=== PATIENT | male | born 1940 | race Caucasian/White ===

== ENCOUNTER 2017-11-21 09:34 | Outpatient (CLI) | payer MEDICARE, OTHER | END 2017-11-21 09:35 | disposition home or self-care (01) | LOC: LAB.F 09:34 | PROVIDERS: ATTEND Family Medicine | DX: E74.39 Other disorders of intestinal carbohydrate absorption (principal); I25.10 Atherosclerotic heart disease of native coronary artery without angina pectoris | CPT/HCPCS: 36415; 83036 ==

== ENCOUNTER 2017-12-10 09:53 | Emergency (ER) | payer MEDICARE, OTHER ==
[2017-12-10] MEDS ORDERED: NITROGLYCERIN SL 0.4 MG TABLET SL STA (10:07)
--- NOTE | 2017-12-10 10:10 | ED Physician Documentation ---
History of Present Illness - Stated complaint Stated Complaint: CHEST PX - Chief complaint Chief Complaint: Cardiac - Additonal information Additional information: hx from pt 77 male hx CAD s/p RI with cardiac arrest most recently had negative stress test in September but cath in October showed a 90% blocked coronary and he had a stent placed 2 weeks ago by [facility] cardio on plavix asa BB statin yesterday went for a bike ride afterwards was completely utterly unusually exhausted that evening developed severe CP that felt like his prior heart attack it subsided after a minute and he fell asleep and did not tell his when he awoke this AM he still has chest pain though less severe ant, pressure like, 2/10, no radiation no soa diaphoresis (though has had night sweats at times) NV no leg swelling called [facility] cardio and told to come to ER took asa and plavix within 24 hr Review of Systems Constitutional: reports: Fatigue. denies: Fever, Chills Throat: denies: Sore throat Cardiac: reports: Chest pain / pressure Respiratory: denies: Dyspnea, Cough GI: denies: Abdominal Pain, Nausea, Vomiting Musculoskeletal: denies: Extremity pain, Extremity swelling Neurologic: reports: Generalized weakness Endocrine: denies: Easy bruising / bleeding Immunocompromised: denies: Immunocompromised PD PAST MEDICAL HISTORY - Present Medications Home Medications: Ambulatory Orders Medication Instructions Recorded Confirmed Allopurinol 100 mg PO 12/10/17 Aspirin 12/10/17 Atorvastatin [Lipitor] 12/10/17 Clopidogrel [Plavix] 12/10/17 Glucosamine HCl 12/10/17 Metoprolol Tartrate 12/10/17 Omeprazole [PriLOSEC] 12/10/17 12/10/17 - Allergies Allergies/Adverse Reactions: Allergies Allergy/AdvReac Type Severity Reaction Status Date / Time No Known Drug Allergies Allergy Verified 12/10/17 10:02 PD ED PE NORMAL - Vitals Vital signs reviewed: Yes - General General: Alert and oriented X 3 - HEENT HEENT: Atraumatic - Neck Neck: Supple, no meningeal sign - Cardiac Cardiac: RRR, No murmur - Respiratory Respiratory: No respiratory distress, Clear bilaterally - Abdomen Abdomen: Soft, Non tender - Derm Derm: Normal color - Extremities Extremities: No edema, No calf tenderness / cord - Neuro Neuro: Alert and oriented X 3 Results - Vitals Vitals: Vital Signs - 24 hr 12/10/17 12/10/17 12/10/17 09:58 10:26 11:43 Temperature 36.4 C L Heart Rate 58 L 58 L 53 L Respiratory 18 16 16 Rate Blood Pressure 142/95 H 128/81 H 108/75 O2 Saturation 2 L 97 96 12/10/17 12/10/17 13:30 15:23 Temperature 36.8 C Heart Rate 59 L 57 L Respiratory 18 20 Rate Blood Pressure 115/80 108/72 O2 Saturation 97 Oxygen O2 Source Room air - EKG (time done) 0959 Rate: Rate (enter#) (59) Rhythm: NSR [place]: Normal Intervals: Normal HI Ischemia: Normal ST segments - Labs Labs: Laboratory Tests 12/10/17 12/10/17 12/10/17 10:05 10:05 10:05 WBC 6.2 RBC 4.51 L Hgb 13.8 L Hct 40.0 L MCV 88.6 MCH 30.5 MCHC 34.4 RDW 14.5 Plt Count 142 MPV 8.5 Neut # (Auto) 3.7 Lymph # (Auto) 1.6 [place] # (Auto) 0.5 Eos # (Auto) 0.3 Baso # (Auto) 0.0 Absolute Nucleated RBC 0.00 Nucleated RBC % 0.0 Sodium 136 Potassium 3.9 Chloride 108 Carbon Dioxide 21 Anion Gap 7.0 BUN 19 Creatinine 1.5 H Estimated GFR (MDRD) 45 L Glucose 135 H Calcium 9.0 Total Bilirubin 0.9 AST 25 ALT 26 Alkaline Phosphatase 88 Troponin I < 0.04 Total Protein 6.9 Albumin 3.8 Globulin 3.1 Albumin/Globulin Ratio 1.2 Lipase 54 H - Rads (name of study) CXR Radiology: See rad report (NACPD) PD MEDICAL DECISION MAKING - ED course ED course: pt refused nitro pain 2/10 EKG s acute ischemia trop neg but sx could be c/w angina worry about stent occlusion will call [facility] cardio to discuss transfer for further work up pt is now 0/10 severity and I feel he is stable for transport long delay in transport - first waiting for bed confirmation then for available EMS rig - pt was upset and angry and nurse natural sciences manager spoke to him - Sepsis Event Vital Signs: Vital Signs - 24 hr 12/10/17 12/10/17 12/10/17 09:58 10:26 11:43 Temperature 36.4 C L Heart Rate 58 L 58 L 53 L Respiratory 18 16 16 Rate Blood Pressure 142/95 H 128/81 H 108/75 O2 Saturation 2 L 97 96 12/10/17 12/10/17 13:30 15:23 Temperature 36.8 C Heart Rate 59 L 57 L Respiratory 18 20 Rate Blood Pressure 115/80 108/72 O2 Saturation 97 Oxygen O2 Source Room air Departure - Departure Disposition: 02 Transfer Acute Care Hosp Clinical Impression: Chest pain Qualifiers: Chest pain type: unspecified Qualified Code(s): R07.9 - Chest pain, unspecified Condition: Fair Discharge Date/Time: 12/10/17 16:09
[2017-12-10 10:17] LABS: BASOPHILS % (AUTO) 0.7 %; EOSINOPHILS # (AUTO) 0.3 10^3/uL (0.0-0.7); EOSINOPHILS % (AUTO) 5.3 %; HGB - HEMOGLOBIN 13.8 g/dL (14.0-18.0); LYMPHOCYTES # (AUTO) 1.6 10^3/uL (1.5-3.5); LYMPHOCYTES % (AUTO) 26.7 %; MEAN CORPUSCULAR HEMOGLOBIN 30.5 pg (27.0-31.0); MEAN CORPUSCULAR HGB CONC 34.4 g/dL (32.0-36.0); MEAN CORPUSCULAR VOLUME 88.6 fL (80.0-94.0); MEAN PLATELET VOLUME 8.5 fL (7.4-11.4); MONOCYTES # (AUTO) 0.5 10^3/uL (0.0-1.0); NEUTROPHILS # (AUTO) 3.7 10^3/uL (1.5-6.6); NEUTROPHILS % (AUTO) 59.3 %; PLT - PLATELET COUNT 142 10^3/uL (130-450); RED BLOOD COUNT 4.51 10^6/uL (4.70-6.10); RED CELL DISTRIBUTION WIDTH 14.5 % (12.0-15.0); WHITE BLOOD COUNT 6.2 x10^3/uL (4.8-10.8)
[2017-12-10 10:27] LABS: ALBUMIN 3.8 g/dL (3.2-5.5); ALBUMIN/GLOBULIN RATIO 1.2 (1.0-2.2); BILIRUBIN,TOTAL 0.9 mg/dL (0.2-1.0); CREATININE 1.5 mg/dL (0.6-1.2); TOTAL PROTEIN 6.9 g/dL (6.7-8.2)
--- NOTE | 2017-12-10 10:32 | XRAY Report ---
Procedure Date: 12/10/2017 Accession Number: [id number] / [id number] Procedure: XR - Chest 1 View X-Ray CPT Code: 44083 FULL RESULT: EXAM: CHEST RADIOGRAPHY EXAM DATE: 12/10/2017 10:17 AM. CLINICAL HISTORY: Cp. COMPARISON: None. TECHNIQUE: 1 view. FINDINGS: Lungs/Pleura: No focal opacities evident. No pleural effusion. No pneumothorax. Mediastinum: Within exam limitations, the cardiomediastinal contour is normal. Other: None. IMPRESSION: No focal consolidation. RADIA
[2017-12-10 15:25] VITALS: BP 108/72
== END 2017-12-10 16:09 | disposition short-term general hospital (02) ==
LOC: ED 09:53
DX: R07.9 Chest pain, unspecified (principal); I25.10 Atherosclerotic heart disease of native coronary artery without angina pectoris; I25.2 Old myocardial infarction; Z86.74 Personal history of sudden cardiac arrest; Z79.82 Long term (current) use of aspirin
CPT/HCPCS: 36415; 71045; 80053; 83690; 84484; 85025; 93005; 99284; A9270

== ENCOUNTER 2017-12-10 16:05 | Outpatient (CLI) | payer MEDICARE, OTHER | END 2017-12-10 16:06 | disposition short-term general hospital (02) | LOC: EMS 16:05 | PROVIDERS: ATTEND Surgery | DX: R07.9 Chest pain, unspecified (principal) | CPT/HCPCS: A0170; A0425; A0426 ==

== ENCOUNTER 2017-12-15 13:19 | Outpatient (CLI) | payer MEDICARE, OTHER ==
[2017-12-15 18:04] LABS: HB2 TOTAL 14.5 g/dL; HEMOGLOBIN A1C 0.59 g/dL; HEMOGLOBIN A1C % 5.9 % (4.6-6.2)
== END 2017-12-15 13:20 | disposition home or self-care (01) ==
LOC: LAB.F 13:19
PROVIDERS: ATTEND Internal Medicine
DX: R73.01 Impaired fasting glucose (principal)
CPT/HCPCS: 36415; 83036

== ENCOUNTER 2018-11-25 09:33 | Outpatient (CLI) | payer MEDICARE, OTHER ==
[2018-11-25 17:52] LABS: BASOPHILS % (AUTO) 0.4 %; EOSINOPHILS # (AUTO) 0.2 10^3/uL (0.0-0.7); EOSINOPHILS % (AUTO) 2.6 %; HGB - HEMOGLOBIN 15.7 g/dL (14.0-18.0); LYMPHOCYTES # (AUTO) 1.7 10^3/uL (1.5-3.5); LYMPHOCYTES % (AUTO) 18.2 %; MEAN CORPUSCULAR HEMOGLOBIN 30.9 pg (27.0-31.0); MEAN CORPUSCULAR HGB CONC 32.5 g/dL (32.0-36.0); MEAN CORPUSCULAR VOLUME 95.1 fL (80.0-94.0); MEAN PLATELET VOLUME 11.1 fL (7.4-11.4); MONOCYTES # (AUTO) 1.1 10^3/uL (0.0-1.0); MONOCYTES % (AUTO) 12.1 %; NEUTROPHILS # (AUTO) 6.1 10^3/uL (1.5-6.6); NEUTROPHILS % (AUTO) 66.3 %; PLT - PLATELET COUNT 133 10^3/uL (130-450); RED BLOOD COUNT 5.08 10^6/uL (4.70-6.10); RED CELL DISTRIBUTION WIDTH 13.7 % (12.0-15.0); WHITE BLOOD COUNT 9.2 x10^3/uL (4.8-10.8)
[2018-11-25 18:08] LABS: HB2 TOTAL 16.7 g/dL; HEMOGLOBIN A1C 0.71 g/dL
[2018-11-25 18:27] LABS: CALCIUM 9.6 mg/dL (8.5-10.3); CREATININE 1.4 mg/dL (0.6-1.2)
== END 2018-11-25 09:34 | disposition home or self-care (01) ==
LOC: LAB.S 09:33
PROVIDERS: ATTEND Internal Medicine
DX: R73.01 Impaired fasting glucose (principal); D50.9 Iron deficiency anemia, unspecified
CPT/HCPCS: 36415; 80048; 82728; 83036; 85025

== ENCOUNTER 2020-03-07 10:51 | Outpatient (CLI) | payer MEDICARE, OTHER | END 2020-03-07 10:52 | disposition home or self-care (01) | LOC: LAB.S 10:51 | PROVIDERS: ATTEND Internal Medicine | DX: N41.9 Inflammatory disease of prostate, unspecified (principal) | CPT/HCPCS: 36415; 84153 ==

== ENCOUNTER 2022-03-18 08:00 | Outpatient (CLI) | payer MEDICARE, BC | END 2022-03-18 23:59 | disposition home or self-care (01) | LOC: LAB.S 08:00 | PROVIDERS: ATTEND Physician Assistant | DX: R30.0 Dysuria (principal) | CPT/HCPCS: 87077; 87086; 87181 ==